=== PATIENT | male | born 1955 | race Asian ===

== ENCOUNTER 2019-09-03 11:48 | Emergency (ER) | payer MEDICARE, MEDICAID ==
[~2019-09-03] VITALS: Ht 177.8 cm; Wt 100.0 kg
[~2019-09-03 11:48] MED LIST: CARV25TA32 PO; CLOP75TA32 PO; GLIP5TAB11 PO; HTN; INSLAN SQ; LAMO100T16 PO; LEVE750T10 PO; LOSA25TA71 PO; METF-446 PO
[2019-09-03 12:11] LABS: GLUCOSE,POINT OF CARE 181 MG/DL (70-110)
[2019-09-03] MEDS ORDERED: CefTRIAXone SODIUM 1 GM/VIAL IM ONE (13:30)
[2019-09-03] MEDS ORDERED: ACETAMINOPHEN 500 MG TABLET PO ONE (13:30)
[2019-09-03] MEDS ORDERED: LEVOFLOXACIN 250 MG TABLET PO ONE (13:30)
[2019-09-03] MEDS ORDERED: LIDOCAINE/PF 1% 2 ML VIAL IM ONE (13:30)
[2019-09-03 13:48] VITALS: BP 118/71
== END 2019-09-03 14:42 | disposition home or self-care (01) ==
LOC: EMS 11:52
DX: J18.9 Pneumonia, unspecified organism (principal); E11.9 Type 2 diabetes mellitus without complications; I25.2 Old myocardial infarction; F17.210 Nicotine dependence, cigarettes, uncomplicated; Z95.5 Presence of coronary angioplasty implant and graft; Z98.890 Other specified postprocedural states; Z79.4 Long term (current) use of insulin; Z79.899 Other long term (current) drug therapy; Z79.84 Long term (current) use of oral hypoglycemic drugs
CPT/HCPCS: 71046; 82962; 96372; 99283; 99406; J0696; J3490